=== PATIENT | female | born 1965 | race Caucasian/White ===

== ENCOUNTER 2023-05-26 19:42 | Emergency (ER) | payer MEDICARE, MEDICAID ==
[~2023-05-26] VITALS: Ht 162.6 cm; Wt 115.7 kg
[2023-05-26 19:59] VITALS: BP_SYST 171; PULSE 69; RESP 16; TEMP 97.2; O2SAT 100
--- NOTE | 2023-05-26 20:25 | NUR ---
ER at bedside examining patient.
--- NOTE | 2023-05-26 21:22 | NUR ---
PT IN WAITING AREA WITH DAUGHTER NAD, EVEN UNLABORED RR VSS.
--- NOTE | 2023-05-26 23:06 | NUR ---
DOPPLER STUDY COMPLETED AND READ RESULTS.
[2023-05-26 23:40] VITALS: BP_SYST 171; PULSE 69; RESP 16; TEMP 97.2; O2SAT 100
--- NOTE | 2023-05-26 23:40 | NUR ---
Patient given written and verbal discharge instructions and verbalizes understanding. ER MD discussed with patient the results and treatment provided. Patient in stable condition. ID arm band removed. Patient educated on LEG CRAMPS management and to follow up with PMD. Pain Scale 0. Opportunity for questions provided and answered. Medication side effect fact sheet provided.
== END 2023-05-26 23:40 | disposition home or self-care (01) ==
LOC: SED 19:42
DX: R25.1 Tremor, unspecified (principal); M79.661 Pain in right lower leg; Z79.899 Other long term (current) drug therapy
CPT/HCPCS: 93971; 99284